=== PATIENT | male | born 1955 | race Hispanic/Latino ===

== ENCOUNTER 2018-10-12 23:28 | Observation (INO) | payer MEDICARE, BC ==
[2018-10-13 00:42] LABS: #Basophils 0.1 thou/uL (0.0-0.2); #Eosinphils 0.1 thou/uL (0.0-0.7); #Lymphocytes 1.2 thou/uL (1.20-3.40); #Monocytes 0.4 thou/uL (0.11-0.59); #Neutrophils 3.8 thou/uL (1.40-6.50); %Basophils 0.9 % (0.0-1.0); %Eosinophils 1.5 % (0.0-10.0); %Lymphocytes 21.5 % (21.0-51.0); %Monocytes 7.6 % (0.0-10.0); %Neutrophils 68.5 % (42.0-75.0); Hemoglobin 14.1 g/dL (14.0-18.0); Mean Corpuscular HGB CONC 34.4 g/dL (32.0-36.0); Mean Corpuscular Hemoglobin 30.6 pg (27.0-31.0); Mean Corpuscular Volume 88.8 fL (78.0-98.0); Platelet Count 216 thou/uL (130-400); RBC Distribution Width 12.2 % (11.5-14.5); Red Blood Cell (RBC) Count 4.61 mill/uL (4.70-6.10); White Blood Cell (WBC) Count 5.5 thou/uL (4.8-10.8)
[2018-10-13 01:07] LABS: ALT (SGPT) 51 U/L (8-55); AST (SGOT) 142 U/L (5-34); Alkaline Phosphatase 82 U/L (40-150); Anion Gap 12 mmol/L (10-20); BUN (Urea Nitrogen) 14 mg/dL (8.4-25.7); Bilirubin, Total 1.5 mg/dL (0.2-1.2); Calc. Creatinine Clearance 0 mL/min (70-130); Calcium 8.7 mg/dL (7.8-10.44); Carbon Dioxide 24 mmol/L (23-31); Chloride 106 mmol/L (98-107); Estimated GFR-MDRD 82; Globulin 2.9 g/dL (2.4-3.5); Glucose 116 mg/dL (80-115); Potassium 3.8 mmol/L (3.5-5.1); Protein, Total 6.9 g/dL (5.8-8.1); Sodium 138 mmol/L (136-145)
[2018-10-13 01:32] LABS: CK (CPK) 9521 U/L (30-200)
[2018-10-13] MEDS ORDERED: Ondansetron PF 4 MG/2 ML Vial IVP PRN (04:36)
[2018-10-13] MEDS ORDERED: Ondansetron ODT 4 MG TAB SL PRN (04:36)
[2018-10-13] MEDS ORDERED: Acetaminophen 325 MG TAB PO PRN (04:36)
[2018-10-13 04:40] LABS: Medtox Reader # READER 4
[2018-10-13 04:41] LABS: Amphetamine Not Detected (NotDetected); Barbiturates Screen Not Detected (NotDetected); Benzodiazepine Screen Not Detected (NotDetected); Cocaine Metabolite Screen Not Detected (NotDetected); Medtox Control Line Valid? VALID (VALID); Methadone Not Detected (NotDetected); Methamphetamine Not Detected (NotDetected); Opiate Screen Not Detected (NotDetected); Oxycodone Screen Not Detected (NotDetected); Phencyclidine (PCP) Not Detected (NotDetected); THC/Cannabinoid Screen Detected (NotDetected); Tricyclic Screen Not Detected (NotDetected)
[2018-10-13] MEDS: Sodium Chloride 0.9% 1,000 ML IV SCH ×4 (05:06→17:39)
[2018-10-13 05:34] VITALS: BMI 32.8
[2018-10-13] MEDS ORDERED: Prevnar 13-Val Conj/PF 0.5 ML SYRINGE IM ONE (05:45)
--- NOTE | 2018-10-13 08:21 | RAD ---
PORTABLE AP CHEST RADIOGRAPH: Date: 10-13-18 Comparison: 12-09-08 History: Weakness. History of myocardial infarction. FINDINGS: Midline sternotomy wires are present. Heart and mediastinal contours are stable. There is no pneumoth orax, pleural fluid, lobar consolidation or alveolar edema. IMPRESSION: No acute findings. POS: [facility]
[2018-10-13 10:21] LABS: Hemoglobin 13.6 g/dL (14.0-18.0); Mean Corpuscular HGB CONC 33.5 g/dL (32.0-36.0); Mean Corpuscular Hemoglobin 30.2 pg (27.0-31.0); Mean Corpuscular Volume 90.1 fL (78.0-98.0); Platelet Count 207 thou/uL (130-400); RBC Distribution Width 12.4 % (11.5-14.5); White Blood Cell (WBC) Count 3.6 thou/uL (4.8-10.8)
[2018-10-13 10:41] LABS: Anion Gap 12 mmol/L (10-20); BUN (Urea Nitrogen) 13 mg/dL (8.4-25.7); Calc. Creatinine Clearance 130 mL/min (70-130); Carbon Dioxide 21 mmol/L (23-31); Chloride 110 mmol/L (98-107); Estimated GFR-MDRD Greater than 90; Glucose 159 mg/dL (80-115); Sodium 139 mmol/L (136-145)
[2018-10-13 10:54] LABS: CK (CPK) 6007 U/L (30-200)
[2018-10-13] MEDS: Enoxaparin Sodium 40 MG/0.4 ML SYRINGE SC SCH (12:00)
[2018-10-13 15:23] LABS: Bilirubin Negative (Negative); Blood, Urine Negative (Negative); Clarity CLEAR (Clear); Glucose, Urine (Dipstick) Negative (Negative); Leukocyte Negative (Negative); Nitrite Negative (Negative); Protein, Urine (Dipstick) Negative (Neg-Trace); Specific Gravity, Urine 1.009 (1.002-1.036); pH, Urine 6.5 (5.0-9.0)
[2018-10-13 15:26] LABS: Bacteria/HPF None Seen HPF (None Seen); Hyaline Casts/LPF 0-3 HYALINE CAST LPF (0-3 Hyaline); RBC/HPF 0-3 HPF (0-3); Squamous Epithelial None Seen HPF (0-3); WBC/HPF None Seen HPF (0-3)
--- NOTE | 2018-10-13 15:43 | PDOC.EVN ---
Event Note - Event Note Event Note: interviewed, examined. agree with Plan per Jeferson VEAG.
[2018-10-13] MEDS: Famotidine 20 MG TAB PO SCH (20:57)
--- NOTE | 2018-10-14 00:15 | HP ---
PRIMARY CARE PHYSICIAN: Dr. Titi Samuel. CHIEF COMPLAINT: Palpitations, generalized weakness, and lethargy. HISTORY OF PRESENT ILLNESS: Mr. Bruno is a pleasant 63-year-old male with a past medical history of CAD, CABG x4, hypertension, history of GA, who had reported to [facility] with symptoms of generalized weakness, palpitations, and not feeling well. He states symptoms started late last night. He states he has been doing more exercise lately, which included pushups and sit-ups. In addition, he has also been walking more often. He states he has noticed some pain in his legs; however, this is just mild. He had denied any chest pain, shortness of breath, nausea, vomiting, or diarrhea. He denies fever or chills. He states the symptoms were pretty concerning for him, therefore, that is what brought him into the ER. Upon arrival to the ER, it was found on his initial lab work, his creatine kinase was found to be elevated at 9521. AST also elevated at 142. Toxicology screen detected cannabinoids; however, the drug screen was unremarkable. His vital signs in the ER were found to be stable at 133/71, pulse 66, respirations 16, temperature 98.3, and O2 saturation 99% on room air. He was started on IV fluid hydration with normal saline. He had received a total of 2 L of fluid in the ER prior to admission. It was determined that the patient would be admitted under observation for further evaluation of symptoms and continued IV fluids. PAST MEDICAL HISTORY: History of GA, CAD, CABG x4, hypertension, and hyperlipidemia. PAST SURGICAL HISTORY: CABG x4, prostatectomy, left knee surgery, right shoulder surgery. PSYCHIATRIC HISTORY: Denies any psychiatric history at this time. SOCIAL HISTORY: Denies any alcohol use or tobacco use; however, does admit to marijuana use. REVIEW OF SYSTEMS: CONSTITUTIONAL: Denies any fever, chills; however, does report some generalized weakness and not feeling well. EYES: No eye changes, blurred vision, or eye redness. ENT: Denies any ears, nose and throat changes. Denies any trouble swallowing. Denies any drainage. CARDIOVASCULAR: Denies any chest pain, but does report some palpitations late last night, however, not at the moment. RESPIRATORY: Denies cough, shortness of breath, or wheezing. GI: Denies any abdominal pain, nausea, vomiting, diarrhea, or constipation. MUSCULOSKELETAL: Reports some leg pain in bilateral quadriceps muscles and calf, this is just mild. No edema. SKIN: Denies any skin changes. No lesions. No rashes. NEUROLOGIC: Does report some weakness. Denies any gait disturbances or changes in his speech. Denies headache or blurred vision. PSYCHIATRIC: Denies any homicidal or suicidal ideation. ALLERGIES: SULFA ALLERGY. CURRENT MEDICATIONS: 1. Isosorbide mononitrate 15 mg p.o. daily. 2. Atorvastatin 20 mg p.o. at bedtime. 3. Metoprolol 12.5 mg p.o. b.i.d. 4. Amlodipine 5 mg p.o. daily. 5. Levothyroxine 112 mcg p.o. daily. 6. Aspirin 81 mg daily. PHYSICAL EXAMINATION: VITAL SIGNS: Blood pressure 123/77, pulse 66, respirations 18, temperature 97.7, and O2 saturations 97% on room air. GENERAL: Alert and oriented x3. No acute distress noted. HEAD: Atraumatic, normocephalic. ENT: Pupils are round and reactive to light. Extraocular muscles intact. Moist mucous membranes. Oropharynx clear without erythema. Uvula midline. NECK: Soft and supple. Good range of motion. No tenderness. No bruit. No JVD noted. CARDIOVASCULAR: Regular rate and rhythm. Positive S1 and S2. No murmur noted. RESPIRATORY: Clear to auscultation bilaterally. No wheezes, no rhonchi. ABDOMEN: Soft, nontender. Bowel sounds present. No rebound tenderness. No rigidity. MUSCULOSKELETAL: Strength 5+ bilaterally. Moves all extremities equally. Radial and pedal pulses 2+ bilaterally. No edema noted. NEUROLOGIC: Cranial nerves 2 through 12 intact. No focal deficit noted. Gait is normal. Speech is normal. SKIN: Warm, dry, and intact. No lesions. No rashes noted. No bruising noted. PSYCHIATRIC: Normal mood and affect. LABORATORY DATA: On admission; WBC 5.5, RBC 4.61, hemoglobin 14.1, D-dimer 0.41. Sodium 138, potassium 3.8, creatinine 0.93, estimated GFR 82, glucose 116. AST 142 and alkaline phosphatase is 82. Creatine kinase 9521. Troponin was 0.011. Urinalysis was clean. Toxicology screen did show urine cannabinoids. DIAGNOSTIC IMAGING: Chest x-ray showed no acute findings. ASSESSMENT AND PLAN: 1. Rhabdomyolysis, continue symptomatic treatment at this time with IV fluids, normal saline. Recheck of creatine kinase was found to be improved at 6007, we will recheck in the morning. We will also recheck other lab work in the morning. Continue on home medications for underlying hypertension and other conditions. The patient's rhabdomyolysis is likely secondary to combination of dehydration and/or increased activity and/or statin therapy; therefore, we will recommend discontinuing statin therapy at this time and have the patient follow up with PCP for further management as an outpatient post discharge. 2. Hypertension: Monitor vital signs closely. Continue on home medications and further adjustments as needed. 3. Deep venous thrombosis prophylaxis with Lovenox 40 mg subcutaneous daily. 4. Gastrointestinal prophylaxis with Pepcid 20 mg p.o. b.i.d., Zofran as needed for nausea. Disposition and further medical management pending the patient's progress and clinical findings. The patient will likely be discharged home with close outpatient followup with his primary care physician in under 2 midnights. Job ID: [id number]
[2018-10-14] MEDS: Sodium Chloride 0.9% 1,000 ML IV SCH ×2 (01:23→08:50)
[2018-10-14] MEDS ORDERED: Levothyroxine Sodium 112 MCG TAB PO SCH (06:00)
[2018-10-14 06:20] LABS: #Eosinphils 0.2 thou/uL (0.0-0.7); #Lymphocytes 1.3 thou/uL (1.20-3.40); #Monocytes 0.4 thou/uL (0.11-0.59); #Neutrophils 2.4 thou/uL (1.40-6.50); %Basophils 0.6 % (0.0-1.0); %Lymphocytes 29.2 % (21.0-51.0); %Monocytes 9.6 % (0.0-10.0); %Neutrophils 55.6 % (42.0-75.0); Hemoglobin 13.8 g/dL (14.0-18.0); Mean Corpuscular Hemoglobin 30.5 pg (27.0-31.0); Mean Corpuscular Volume 89.7 fL (78.0-98.0); Mean Platelet Volume 8.5 fL (7.4-10.4); Platelet Count 187 thou/uL (130-400); RBC Distribution Width 12.5 % (11.5-14.5); Red Blood Cell (RBC) Count 4.53 mill/uL (4.70-6.10); White Blood Cell (WBC) Count 4.4 thou/uL (4.8-10.8)
[2018-10-14 06:32] LABS: Anion Gap 10 mmol/L (10-20); BUN (Urea Nitrogen) 9 mg/dL (8.4-25.7); CK (CPK) 3565 U/L (30-200); Calc. Creatinine Clearance 134 mL/min (70-130); Calcium 8.1 mg/dL (7.8-10.44); Carbon Dioxide 22 mmol/L (23-31); Chloride 111 mmol/L (98-107); Estimated GFR-MDRD Greater than 90; Glucose 83 mg/dL (80-115); Potassium 4.1 mmol/L (3.5-5.1); Sodium 139 mmol/L (136-145)
[2018-10-14 08:07] VITALS: TEMP 97.6
[2018-10-14] MEDS: Famotidine 20 MG TAB PO SCH (08:46)
[2018-10-14] MEDS: Enoxaparin Sodium 40 MG/0.4 ML SYRINGE SC SCH (08:54)
[2018-10-14] MEDS ORDERED: Aspirin 81 mg Enteric Coated Tablet PO SCH (09:00)
[2018-10-14] MEDS ORDERED: Amlodipine 5 MG TAB PO SCH (09:00)
[2018-10-14 12:12] VITALS: BP 125/77
--- NOTE | 2018-10-16 04:49 | DIS ---
DATE OF ADMISSION: 10/13/2018 DATE OF DISCHARGE: 10/14/2018 DISCHARGE DIAGNOSES: 1. Rhabdomyolysis, resolved. 2. Hypertension, stable. 3. History of coronary artery disease, stable. 4. History of coronary artery bypass graft x4. 5. Generalized weakness, resolved. CONSULTATIONS: None. PROCEDURES: None. LABORATORY DATA: WBC 4.4, RBC 4.53, hemoglobin 13.8, and platelets 187. D-dimer is 0.41. Sodium 139, potassium 4.1, anion gap 10, creatinine 0.70, estimated GFR greater than 90, glucose 83, AST 142, ALT 51, alkaline phosphatase 82, creatine kinase on admission 9521, trended down to 6007 and then 3565. Troponin 0.011. Urinalysis unremarkable. Toxicology screen detected cannabinoids. DIAGNOSTIC IMAGING: Chest x-ray showed no acute findings. HOSPITAL COURSE: Mr. Bruno is a pleasant 63-year-old male, who had presented to [facility] with complaints of generalized weakness, palpitations and overall not feeling well. It was found that he had been working out more frequently including pushups and dumbbell curls at home, he also has not been drinking much water. He states symptoms about one day prior to admission, he had woken up in the morning and felt very sore to the point that he could barely move his arms, and this was concerning for him that he sought further evaluation in the ER. He had denied any chest pain, shortness of breath, nausea, vomiting, or diarrhea. He had denied any fever or chills. It was found on admission that his creatine kinase was elevated at 9521, AST also elevated at 142. Toxicology screen detected cannabinoids. Otherwise, other labs were essentially unremarkable. Troponins negative. Chest x-ray revealed no acute findings. He was admitted under observation for further evaluation and he was continued on IV fluids including normal saline throughout hospital course, he had received a total of 4 L of fluid. His symptoms resolved during hospital course. Creatine kinase was followed and rechecked and found to improve. On admission, it was found at 9521 and had trended down to 6007 and then 3565 on 10/14/2018. His creatinine remained normal throughout his hospital course. His estimated GFR was found to be greater than 90. BUN of 9, he was seen and examined at bedside in the morning of 10/14/2018. He had no further complaints of chest pain, shortness of breath, or abdominal pain. He was able to move his extremities without any complaints, he had reported returning to his baseline, he was taking atorvastatin at home; however, this was held during hospital course as this could have been a possible contributor to his underlying rhabdomyolysis. Therefore, this was discontinued and it was recommended that he stop this at home and follow up with his PCP for further evaluation and management of his cholesterol. He had verbalized his understanding, it was determined the patient was stable for discharge and no further workup needed, it was recommended he follow up with his primary care physician, Dr. Titi Samuel, in 1 to 2 weeks postdischarge. DISCHARGE MEDICATIONS: 1. Isosorbide monohydrate 50 mg oral daily. 2. Metoprolol 12.5 mg oral twice daily. 3. Amlodipine 5 mg oral daily. 4. Levothyroxine 112 mcg oral daily. 5. Aspirin 81 mg daily. DISCONTINUED MEDICATIONS: Atorvastatin 20 mg oral at bedtime. FOLLOWUP: The patient was instructed to follow up with his PCP, Dr. Titi Samuel, in 1 to 2 weeks. CONDITION ON DISCHARGE: Stable. ACTIVITY: As tolerated. DIET: Regular diet. CODE STATUS: Full code. DISPOSITION: Home on 10/14/2018. Job ID: [id number]
--- NOTE | 2018-10-16 13:28 | EKG ---
Test Reason : Blood Pressure : / mmHG Vent. Rate : 067 BPM Atrial Rate : 067 BPM P-R Int : 186 ms QRS Dur : 084 ms QT Int : 376 ms P-R-T Axes : 057 001 036 degrees QTc Int : 397 ms Normal sinus rhythm Anteroseptal infarct , age undetermined Abnormal ECG Confirmed by TIEN DE OLIVEIRA DO ([id number]), editorial intern RAH HEARD ([id number] on 10/16/2018 1:27:41 PM Referred By: Confirmed By:TIEN DE OLIVEIRA DO
== END 2018-10-14 15:52 | disposition home or self-care (01) ==
LOC: ERS 23:28 → 2SW 10-13 02:04
PROVIDERS: ADMIT Internal Medicine; ATTEND Internal Medicine
DX: M62.82 Rhabdomyolysis (principal); R00.2 Palpitations; I25.10 Atherosclerotic heart disease of native coronary artery without angina pectoris; I10 Essential (primary) hypertension; I25.2 Old myocardial infarction; E78.5 Hyperlipidemia, unspecified; Z79.82 Long term (current) use of aspirin; Z79.899 Other long term (current) drug therapy; Z88.2 Allergy status to sulfonamides; Z95.1 Presence of aortocoronary bypass graft
CPT/HCPCS: 71045; 80048 ×2; 80053; 80306; 81001; 82550 ×3; 83874; 84484; 85025 ×2; 85027; 85379; 93005; 96360; 96361 ×3; 97139; 99285; G0378 ×2; 36415

== ENCOUNTER 2019-08-03 19:18 | Emergency (ER) | payer MEDICARE, BC ==
[2019-08-03 19:43] LABS: #Eosinphils 0.2 thou/uL (0.0-0.7); #Lymphocytes 1.9 thou/uL (1.20-3.40); #Monocytes 0.4 thou/uL (0.11-0.59); #Neutrophils 2.4 thou/uL (1.40-6.50); %Basophils 0.8 % (0.0-1.0); %Eosinophils 4.2 % (0.0-10.0); %Lymphocytes 37.9 % (21.0-51.0); %Monocytes 8.8 % (0.0-10.0); %Neutrophils 48.3 % (42.0-75.0); Hemoglobin 14.2 g/dL (14.0-18.0); Mean Corpuscular HGB CONC 34.8 g/dL (32.0-36.0); Mean Corpuscular Hemoglobin 31.3 pg (27.0-31.0); Mean Corpuscular Volume 89.9 fL (78.0-98.0); Mean Platelet Volume 7.9 fL (7.4-10.4); Platelet Count 172 thou/uL (130-400); RBC Distribution Width 11.7 % (11.5-14.5); Red Blood Cell (RBC) Count 4.53 mill/uL (4.70-6.10); White Blood Cell (WBC) Count 4.9 thou/uL (4.8-10.8)
--- NOTE | 2019-08-03 20:02 | RAD ---
RADIOGRAPH CHEST 1 VIEW: DATE: 08/03/2019 HISTORY: 64-year-old male with chest pain FINDINGS: There are no airspace densities, pulmonary edema, pneumothorax, or cardiomegaly. The lateral costophr enic angles are sharp. Sternotomy wires. IMPRESSION: 1. No acute cardiopulmonary findings. 2. Evidence of previous open-heart surgery.
[2019-08-03 20:04] LABS: ALT (SGPT) 21 U/L (8-55); AST (SGOT) 22 U/L (5-34); Albumin 4.3 g/dL (3.4-4.8); Alkaline Phosphatase 93 U/L (40-110); Anion Gap 10 mmol/L (10-20); BUN (Urea Nitrogen) 18 mg/dL (8.4-25.7); Bilirubin, Total 0.7 mg/dL (0.2-1.2); CK (CPK) 278 U/L (30-200); Calc. Creatinine Clearance 0 mL/min (70-130); Calcium 8.7 mg/dL (7.8-10.44); Carbon Dioxide 28 mmol/L (23-31); Chloride 103 mmol/L (98-107); Estimated GFR-MDRD 72; Globulin 2.9 g/dL (2.4-3.5); Glucose 93 mg/dL (80-115); Potassium 4.3 mmol/L (3.5-5.1); Protein, Total 7.2 g/dL (5.8-8.1); Sodium 137 mmol/L (136-145)
[2019-08-03] MEDS ORDERED: Aspirin Chewable 81 MG TAB ONE (22:29)
[2019-08-03 23:14] LABS: Troponin I 0.014 ng/mL (< 0.028)
== END 2019-08-03 23:35 | disposition home or self-care (01) ==
LOC: ERS 19:18
DX: R07.89 Other chest pain (principal); E78.5 Hyperlipidemia, unspecified; I11.0 Hypertensive heart disease with heart failure; I50.9 Heart failure, unspecified; Z79.82 Long term (current) use of aspirin; Z79.899 Other long term (current) drug therapy
CPT/HCPCS: 36415; 71045; 80053; 82550; 84484; 85025; 93005